=== PATIENT | male | born 1990 | race Caucasian/White ===

== ENCOUNTER 2023-05-14 22:29 | Emergency (ER) | payer BC ==
[~2023-05-14] VITALS: Ht 177.8 cm; Wt 74.8 kg
[~2023-05-14 22:29] MED LIST: PEP15L PO
[2023-05-14 23:01] VITALS: BP 132/72; PULSE 92; RESP 16; TEMP 97.4; O2SAT 100
[2023-05-15] MEDS: KETOROLAC 30 MG/ML VIAL IM ONE (01:09)
[2023-05-15] MEDS: HYDROcodone/APAP 10/325 MG 1 TAB TAB PO ONE (01:10)
[2023-05-15] MEDS ORDERED: ACET-10509 PO (01:47)
[2023-05-15] MEDS ORDERED: IBUP-2213 PO (01:49)
[2023-05-15] MEDS ORDERED: HYDR-5191 PO (01:52)
== END 2023-05-15 02:15 | disposition home or self-care (01) ==
LOC: MED 22:29
DX: S82.031A Displaced transverse fracture of right patella, initial encounter for closed fracture (principal); Z79.899 Other long term (current) drug therapy; Z98.890 Other specified postprocedural states; W01.198A Fall on same level from slipping, tripping and stumbling with subsequent striking against other object, initial encounter; Y93.89 Activity, other specified; Y92.89 Other specified places as the place of occurrence of the external cause; Y99.8 Other external cause status
CPT/HCPCS: 29505; 73564; 96372; 99283; J1885